=== PATIENT | male | born 1950 | race Caucasian/White ===

== ENCOUNTER 2019-12-31 07:56 | Outpatient (CLI) | payer OTHER | END 2019-12-31 08:04 | disposition home or self-care (01) | LOC: MRI 07:56 | PROVIDERS: ATTEND Orthopaedic Surgery | DX: M25.561 Pain in right knee (principal) | CPT/HCPCS: 73718; 73721 ==

== ENCOUNTER 2020-01-12 09:11 | Outpatient (CLI) | payer OTHER | END 2020-01-12 09:13 | disposition home or self-care (01) | LOC: RAD 09:11 | PROVIDERS: ATTEND Orthopaedic Surgery | DX: R07.89 Other chest pain (principal) ==

== ENCOUNTER 2021-08-24 09:55 | Outpatient (CLI) | payer OTHER | END 2021-08-24 09:57 | disposition home or self-care (01) | LOC: MRI 09:55 | PROVIDERS: ATTEND Orthopaedic Surgery | DX: M25.561 Pain in right knee (principal); M25.562 Pain in left knee; M79.641 Pain in right hand | CPT/HCPCS: 73721 ==

== ENCOUNTER 2022-04-02 07:00 | Inpatient (IN) | payer OTHER ==
[~2022-04-02] VITALS: Ht 172.7 cm; Wt 62.1 kg
[2022-04-02] MEDS ORDERED: VASOTEC20 M1 PO (08:07)
[2022-04-02] MEDS ORDERED: SIMVAST PO (08:08)
[2022-04-02] MEDS ORDERED: METOPROLOL SUC200 MG PO (08:08)
[2022-04-02] MEDS ORDERED: NASAL MIST126 ML (08:08)
[2022-04-09] MEDS ORDERED: SIMVASTATIN20 MG (08:28)
[2022-04-09] MEDS ORDERED: NABUMETONE500 MG (08:29)
[2022-04-09] MEDS ORDERED: NIFEDIPINE ER30 M1 (08:29)
== END 2022-04-12 17:00 | DRG 470 ==
LOC: O/R 04-09 06:05 → SURH 04-09 06:05 → SURG 04-09 07:00 → SURH 04-09 10:45
PROVIDERS: ADMIT Orthopaedic Surgery; ATTEND Orthopaedic Surgery
PROC: 0SRC0J9 Replacement of Right Knee Joint with Synthetic Substitute, Cemented, Open Approach (ICD-10-PCS; principal; 2022-04-09 09:45)
DX: M17.11 Unilateral primary osteoarthritis, right knee (principal); M85.661 Other cyst of bone, right lower leg; I10 Essential (primary) hypertension